=== PATIENT | female | born 1995 | race American Indian/Alaskan Native ===

== ENCOUNTER 2018-09-24 10:05 | Emergency (ER) | payer OTHER ==
--- NOTE | 2018-09-24 11:35 | Emergency Department Report ---
Vomiting/Diarrhea - [facility] Chief Complaint: Nausea/Vomiting/Diarrhea Stated Complaint: VOMITING BLOOD Time Seen by Provider: 09/24/18 11:31 ED Review of Systems ROS: Stated complaint: VOMITING BLOOD Other details as noted in HPI ED Past Medical Hx - Past Medical History Previous Medical History?: No - Surgical History Past Surgical History?: No - Social History Smoking Status: Never Smoker Substance Use Type: None - Medications Home Medications: Home Medications Medication Instructions Recorded Confirmed Last Taken Type Doxylamine Succinate [Nighttime 25 mg PO BID PRN #20 tablet 09/24/18 Unknown Rx Sleep-Aid] Jina Root [Jina] 250 mg PO QID PRN #40 capsule 09/24/18 Unknown Rx Pyridoxine HCl (Vitamin B6) 50 mg PO QDAY PRN #20 tablet 09/24/18 Unknown Rx [Pyridoxine HCl] Vomiting Diarrhea Exam - Exam General: Vital signs noted. No distress. Alert and acting appropriately. HEENT: Yes Moist Mucous Membranes, No Pharyngeal Erythema, No Pharyngeal Exudates, No Rhinorrhea, No Conjuctival Injection, No Frontal Tenderness, No Maxillary Tenderness Neck: No Adenopathy, No Rigidity Lungs: Yes Clear Lung Sounds, Yes Good Air Exchange, No Wheezes, No Stridor, No Cough, No Nasal Flaring, No Retractions, No Use of Accessory Muscles Heart exam: Regular: Yes, Murmur: No, Tachycardia: No Abdomen: Tenderness: No, Peritoneal Signs: No, Distention: No, Hyperactive Bowel sounds: No Skin exam: Rash: No, Edema: No, Normal turgor: Yes Neurologic: Alert and oriented, no deficits. Musculoskeletal: Unremarkable. ED Medical Decision Making - Lab Data Laboratory Tests 09/24/18 12:04 Urine Color Yellow Urine Turbidity Slightly-cloudy Urine pH 8.0 H Ur Specific [place] 1.013 Urine Protein 30 mg/dl Urine Glucose (UA) Neg Urine Ketones 20 Urine Blood Neg Urine Nitrite Neg Urine Bilirubin Neg Urine Urobilinogen 4.0 Ur Leukocyte Esterase Tr Urine WBC (Auto) 1.0 Urine RBC (Auto) 1.0 U Epithel Cells (Auto) 20.0 H Urine Bacteria (Auto) 1+ Urine Mucus Few - Medical Decision Making 23-year-old [place] female that is approximately 8 weeks comes in for nausea and vomiting for 3 days. Patient reports that her primary OB is at [facility]. Patient reports that she was placed on Zofran which she reports is not helping. Patient denies abdominal pain or vaginal bleeding or vaginal discharge she does admit to vomiting and unable to hold down foods or fluids. Patient has no past medical history she's 1 para 0 Critical care attestation.: If time is entered above; I have spent that time in minutes in the direct care of this critically ill patient, excluding procedure time. ED Disposition Clinical Impression: Hyperemesis gravidarum Disposition: TO HOME OR SELFCARE Is pt being admited?: No Does the pt Need Aspirin: No Condition: Stable Instructions: Acute Nausea and Vomiting (ED) Additional Instructions: Take medications as prescribed. Follow up with your OB provider. Prescriptions: Jina Root [Jina] 250 mg PO QID PRN #40 capsule PRN Reason: Nausea And Vomiting Doxylamine Succinate [Nighttime Sleep-Aid] 25 mg PO BID PRN #20 tablet PRN Reason: Nausea And Vomiting Pyridoxine HCl (Vitamin B6) [Pyridoxine HCl] 50 mg PO QDAY PRN #20 tablet PRN Reason: Nausea And Vomiting Referrals: ASHLYN CAT MD [Primary Care Provider] - 3-5 Days Your, REFUND SPECIALIST [Other] - 3-5 Days
[2018-09-24] MEDS ORDERED: ZOFRAN IV ONE (11:47)
[2018-09-24] MEDS ORDERED: NACL 0.9% 1000 ML 1,000 ML IV ONE (11:47)
[2018-09-24 13:11] LABS: Bacteria,Urine 1+ /HPF (Negative); Bilirubin,Urine NEG (Negative); Blood,Urine NEG (Negative); Color,Urine Yellow (Yellow); Mucus,Urine FEW /HPF
[2018-09-24 16:07] VITALS: BP 110/72
== END 2018-09-24 13:55 | disposition home or self-care (01) ==
LOC: ED 10:05
DX: O21.0 Mild hyperemesis gravidarum (principal); Z3A.08 8 weeks gestation of pregnancy
CPT/HCPCS: 81001; 96361; 96374; 99283; J2405; J7030